=== PATIENT | male | born 1990 | race Hispanic/Latino ===

== ENCOUNTER 2018-02-25 13:42 | Emergency (ER) | payer BC ==
[2018-02-25] MEDS ORDERED: Sodium Chloride 0.9% 1,000 ML IV STA (14:00)
--- NOTE | 2018-02-25 14:02 | ED PDOC ---
HPI:Nausea, Vomiting, Diarrhea Time Seen by Provider: 02/25/18 13:55 Chief Complaint (Nursing): Abdominal Pain History Per: Patient Onset/Duration Of Symptoms: Days (1) Current Symptoms Are (Timing): Intermittent Episodes Severity: Mild Quality Of Discomfort: Unable To Describe Associated Symptoms: Nausea, Vomiting. denies: Fever, Diarrhea Exacerbating Factors: None Alleviating Factors: None Additional Complaint(s): Nausea since yesterday. 1 episode vomiting last night. Denies fever or diarrhea. Generalized weakness. Denies headache Past Medical History Vital Signs: Last Vital Signs Temp 99 F 02/25/18 13:44 Pulse 128 H 02/25/18 13:44 Resp 16 02/25/18 13:44 BP 155/83 H 02/25/18 13:44 Pulse Ox 98 02/25/18 13:44 - Medical History PMH: Anxiety - Family History Family History: States: Unknown Family Hx - Allergies Allergies/Adverse Reactions: Allergies Allergy/AdvReac Type Severity Reaction Status Date / Time No Known Allergies Allergy Verified 02/25/18 13:44 Review of Systems ROS Statement: Except As Marked, All Systems Reviewed And Found Negative Constitutional: Positive for: Weakness Gastrointestinal: Positive for: Nausea Physical Exam - Reviewed Nursing Documentation Reviewed: Yes Vital Signs Reviewed: Yes - Physical Exam Appears: Positive for: Non-toxic, No Acute Distress Head Exam: Positive for: ATRAUMATIC, NORMAL INSPECTION, NORMOCEPHALIC Skin: Positive for: Normal Color, Warm, DRY Eye Exam: Positive for: EOMI, Normal appearance, PERRL ENT: Positive for: Normal ENT Inspection Neck: Positive for: Normal, Painless ROM Cardiovascular/Chest: Positive for: Regular Rate, Rhythm Respiratory: Positive for: CNT, Normal Breath Sounds Gastrointestinal/Abdominal: Positive for: Soft. Negative for: Tenderness Back: Positive for: Normal Inspection Extremity: Positive for: Normal ROM Neurologic/Psych: Positive for: Alert, Oriented - ECG O2 Sat by Pulse Oximetry: 98 Disposition - Disposition
[2018-02-25 15:10] LABS: BASO % 0.4 % (0.0-2.0); EOS % 0.6 % (0.0-4.0); HEMOGLOBIN 15.3 g/dL (12.0-18.0); LYMPH % 12.8 % (20.0-40.0); MEAN CELL VOLUME 96.2 fl (80.0-94.0); MEAN CORPUSCULAR HEMOGLOBIN 33.6 pg (27.0-31.0); MEAN PLATELET VOLUME 9.4 fl (7.2-11.7); MONO # 0.7 K/uL (0.0-0.8); MONO % 8.3 % (0.0-10.0); NEUT # 6.1 K/uL (1.8-7.0); NEUT % 77.9 % (50.0-75.0); RBC 4.54 Mil/uL (4.40-5.90); RED CELL DISTRIBUTION WIDTH 14.2 % (11.5-14.5); WHITE BLOOD COUNT 7.9 K/uL (4.8-10.8)
[2018-02-25 15:30] LABS: ALB/GLOB RATIO 1.4 (1.0-2.1); ALBUMIN 4.4 g/dL (3.5-5.0); ALT/SGPT 64 U/L (21-72); AST/SGOT 53 U/L (17-59); BLOOD UREA NITROGEN 8 mg/dl (9-20); CALCIUM 9.7 mg/dL (8.4-10.2); GFR NON-AFRICAN AMERICAN > 60
--- NOTE | 2018-02-25 17:33 | ED PDOC ---
- Laboratory Results Result Diagrams: 02/25/18 15:00 02/25/18 15:00 Interpretation Of Abn Labs: 3.5 k - ECG O2 Sat by Pulse Oximetry: 98 Pulse Ox Interpretation: Normal - Progress ED Course And Treament: 1500: Took over care from Dr. Walsh. Here with weakness. Admits to stopping drinking for a few days. Given librium by Dr. Walsh. 1733: Stable. AAOx3. Pain free. Tolerated PO. Will dc with librium. Fu with pcp. Disposition - Clinical Impression Clinical Impression: Alcohol withdrawal - POA Present On Arrival: None - Disposition Referrals: [facility] [Outside] - 02/27/18 Disposition: Routine/Home Disposition Time: 17:34 Condition: STABLE Additional Instructions: Return if not better in 3 days. Prescriptions: chlordiazePOXIDE [Chlordiazepoxide HCl] 50 mg PO DAILY PRN #5 cap PRN Reason: Other Instructions: Alcohol Withdrawal Forms: [employer] (Faroese)
[2018-02-25 17:52] VITALS: RESP 18
[2018-02-26 13:06] VITALS: BP 122/80; PULSE 72; TEMP 98; O2SAT 100
== END 2018-02-25 18:00 | disposition home or self-care (01) ==
LOC: H.ER 13:42
DX: F10.239 Alcohol dependence with withdrawal, unspecified (principal)
CPT/HCPCS: 80053; 85025; 96374; 99283; G0480; J2405; J7030